=== PATIENT | male | born 1980 | race Caucasian/White ===

== ENCOUNTER 2017-07-13 19:59 | Emergency (ER) | payer OTHER ==
[~2017-07-13] VITALS: Ht 167.6 cm; Wt 109.0 kg
[2017-07-13] MEDS ORDERED: HYDROCODONE/ACETAMINOPHEN 5-325 MG TABLET PO ONE (22:15)
[2017-07-13 22:59] VITALS: BP 129/74
== END 2017-07-13 23:07 | disposition home or self-care (01) ==
LOC: EMS 20:02
DX: M54.5 Low back pain (principal)
CPT/HCPCS: 99283

== ENCOUNTER 2017-07-16 18:31 | Emergency (ER) | payer OTHER ==
[~2017-07-16] VITALS: Ht 167.6 cm; Wt 109.1 kg
[2017-07-16] MEDS ORDERED: HYDR-309 PO (18:36)
[2017-07-16] MEDS ORDERED: KETOROLAC TROMETHAMINE 60 MG/2 ML VIAL IM ONE (19:15)
[2017-07-16 19:55] VITALS: BP 126/78
== END 2017-07-16 19:58 | disposition home or self-care (01) ==
LOC: EMS 18:32
DX: M54.5 Low back pain (principal)
CPT/HCPCS: 96372; 99283; J1885